=== PATIENT | female | born 1980 | race African-American/Black ===

== ENCOUNTER 2018-10-19 13:15 | Outpatient (CLI) | payer MEDICARE, OTHER, MEDICAID ==
[2018-10-19 14:27] LABS: ADD UMIC NO; UR ASCORBIC ACID 40 mg/dL (NEGATIVE); UR BACTERIA FEW /HPF (NONE SEEN); UR BILIRUBIN (Dip) NEGATIVE (NEGATIVE); UR BLOOD (Dip) NEGATIVE (NEGATIVE); UR CLARITY SLIGHTLY CLOUDY (CLEAR); UR COLOR YELLOW (YELLOW); UR GLUCOSE (Dip) NEGATIVE (NEGATIVE); UR KETONES (Dip) TRACE mg/dL (NEGATIVE); UR LEUKOCYTE ESTERASE (Dip) NEGATIVE Leu/ul (NEGATIVE); UR MUCUS FEW /HPF (NONE SEEN); UR NITRITE (Dip) NEGATIVE (NEGATIVE); UR RBC 2 /HPF (0-5); UR SPECIFIC GRAVITY (Dip) 1.026 (1.003-1.030); UR SQUAMOUS EPITHELIAL CELL FEW /HPF (FEW); UR TOTAL PROTEIN (Dip) NEGATIVE (NEGATIVE); UR UROBILINOGEN (Dip) 2+ mg/dL (NEGATIVE); UR WBC 1 /HPF (0-5)
[2018-10-19] MEDS ORDERED: MEPERIDINE 50 MG INJ IM (15:00)
[2018-10-19] MEDS: HYDROCODONE/APAP (5/325) TAB PO (16:13)
== END 2018-10-19 18:20 | disposition home or self-care (01) ==
LOC: OBT 13:15 → L-D 13:15 → OBT 18:20
DX: O62.9 Abnormality of forces of labor, unspecified (principal); O26.893 Other specified pregnancy related conditions, third trimester; M19.90 Unspecified osteoarthritis, unspecified site; O09.523 Supervision of elderly multigravida, third trimester
CPT/HCPCS: 76817; 76818; 81001; 81003; 93970

== ENCOUNTER 2018-10-19 18:17 | Emergency (ER) | payer MEDICARE, OTHER | END 2018-10-19 19:00 | disposition home or self-care (01) | LOC: E/R 18:17 | DX: O26.893 Other specified pregnancy related conditions, third trimester (principal); R10.2 Pelvic and perineal pain; O99.89 Other specified diseases and conditions complicating pregnancy, childbirth and the puerperium; M79.605 Pain in left leg; Z3A.32 32 weeks gestation of pregnancy | CPT/HCPCS: 99282 ==

== ENCOUNTER 2018-11-16 18:38 | Outpatient (CLI) | payer MEDICARE, OTHER ==
[2018-11-16 20:26] LABS: ADD UMIC NO; UR ASCORBIC ACID NEGATIVE (NEGATIVE); UR BILIRUBIN (Dip) NEGATIVE (NEGATIVE); UR BLOOD (Dip) NEGATIVE (NEGATIVE); UR CLARITY CLEAR (CLEAR); UR COLOR YELLOW (YELLOW); UR GLUCOSE (Dip) NEGATIVE (NEGATIVE); UR KETONES (Dip) NEGATIVE (NEGATIVE); UR LEUKOCYTE ESTERASE (Dip) NEGATIVE Leu/ul (NEGATIVE); UR NITRITE (Dip) NEGATIVE (NEGATIVE); UR SPECIFIC GRAVITY (Dip) 1.018 (1.003-1.030); UR TOTAL PROTEIN (Dip) NEGATIVE (NEGATIVE); UR UROBILINOGEN (Dip) NEGATIVE (NEGATIVE)
[2018-11-16] MEDS: ACETAMINOPHEN 500 MG TAB PO (20:35)
== END 2018-11-16 21:35 | disposition home or self-care (01) ==
LOC: OBT 18:38 → L-D 18:40 → OBT 21:35
DX: O26.893 Other specified pregnancy related conditions, third trimester (principal); M25.562 Pain in left knee; O41.03X0 Oligohydramnios, third trimester, not applicable or unspecified; O34.219 Maternal care for unspecified type scar from previous cesarean delivery; O09.523 Supervision of elderly multigravida, third trimester; Z3A.36 36 weeks gestation of pregnancy
CPT/HCPCS: 76818; 81003; 87086

== ENCOUNTER 2018-11-20 20:36 | Inpatient (IN) | payer MEDICARE, OTHER ==
[2018-11-20 23:20] LABS: ADD MAN DIFF? NO
[2018-11-20 23:26] LABS: BASOPHILS % 0.2 % (0.0-2.0); EOSINOPHILS # 0.1 10^3/ul (0.0-0.5); EOSINOPHILS % 0.6 % (0.0-7.0); HEMATOCRIT 36.1 % (37.0-47.0); HEMOGLOBIN 11.5 g/dl (12.0-16.0); LYMPHOCYTES # 1.6 10^3/ul (0.8-2.9); LYMPHOCYTES % 16.5 % (15.0-51.0); MEAN CORPUSCULAR HEMOGLOBIN 29.6 pg (29.0-33.0); MEAN CORPUSCULAR HGB CONC 31.9 g/dl (32.0-37.0); MEAN CORPUSCULAR VOLUME 92.8 fl (82.0-101.0); MEAN PLATELET VOLUME 11.5 fl (7.4-10.4); MONOCYTE # 0.6 10^3/ul (0.3-0.9); MONOCYTES % 6.7 % (0.0-11.0); NEUTROPHIL # 7.1 10^3/ul (1.6-7.5); NEUTROPHILS % 75.5 % (39.0-77.0); PLATELET COUNT 209 10^3/UL (140-415); RED BLOOD COUNT 3.89 10^6/ul (4.20-5.40)
[2018-11-20 23:26] LABS: WHITE BLOOD COUNT 9.4 10^3/ul (4.8-10.8)
[2018-11-20 23:38] LABS: ALANINE AMINOTRANSFERASE 10 IU/L (13-69); ALBUMIN 3.3 g/dl (3.3-4.9); ALBUMIN/GLOBULIN RATIO 0.94; ALKALINE PHOSPHATASE 131 IU/L (42-121); ANION GAP 6 (5-13); ASPARTATE AMINO TRANSFERASE 18 IU/L (15-46); BILIRUBIN,INDIRECT 0.3 mg/dl (0-1.1); BILIRUBIN,TOTAL 0.3 mg/dl (0.2-1.3); BLOOD UREA NITROGEN 7 mg/dl (7-20); CALCIUM 9.4 mg/dl (8.4-10.2); CARBON DIOXIDE 27 mmol/L (21-31); CHLORIDE 103 mmol/L (97-110); Estimated GFR > 60 mL/min (>60); GLUCOSE 134 mg/dl (70-220); POTASSIUM 3.7 mmol/L (3.5-5.1); SODIUM 136 mmol/L (135-144); TOTAL PROTEIN 6.8 g/dl (6.1-8.1); URIC ACID 5.6 mg/dl (3.1-7.9)
[2018-11-20 23:46] LABS: INR 0.91; PROTIME 12.4 Sec (11.9-14.9)
[2018-11-20 23:47] LABS: PARTIAL THROMBOPLASTIN TIME 24.2 Sec (23.0-35.0)
[2018-11-20 23:49] LABS: ADD UMIC NO; UR ASCORBIC ACID 40 mg/dL (NEGATIVE); UR BACTERIA FEW /HPF (NONE SEEN); UR BILIRUBIN (Dip) NEGATIVE (NEGATIVE); UR BLOOD (Dip) NEGATIVE (NEGATIVE); UR CALCIUM OXALATE CRYSTAL MANY /HPF (NONE SEEN); UR CLARITY SLIGHTLY CLOUDY (CLEAR); UR COLOR YELLOW (YELLOW); UR GLUCOSE (Dip) 1+ mg/dL (NEGATIVE); UR KETONES (Dip) TRACE mg/dL (NEGATIVE); UR LEUKOCYTE ESTERASE (Dip) NEGATIVE Leu/ul (NEGATIVE); UR MUCUS FEW /HPF (NONE SEEN); UR NITRITE (Dip) NEGATIVE (NEGATIVE); UR RBC 3 /HPF (0-5); UR SPECIFIC GRAVITY (Dip) 1.026 (1.003-1.030); UR SQUAMOUS EPITHELIAL CELL FEW /HPF (FEW); UR TOTAL PROTEIN (Dip) NEGATIVE (NEGATIVE); UR UROBILINOGEN (Dip) 1+ mg/dL (NEGATIVE); UR WBC 1 /HPF (0-5)
[2018-11-21] MEDS: HYDROCODONE/APAP (10/325) TAB PO ×2 (01:41→06:16)
[2018-11-21] MEDS: LACTATED RINGER'S 1,000 ML IV (02:55)
[2018-11-21] MEDS ORDERED: HYDROCODONE/APAP (10/325) TAB PO (03:00)
[2018-11-21] MEDS ORDERED: PRENATAL VITAMIN PO (09:00)
== END 2018-11-21 10:17 | disposition left against medical advice (07) | DRG 833 ==
LOC: OBT 20:36 → L-D 20:38
DX: O13.3 Gestational [pregnancy-induced] hypertension without significant proteinuria, third trimester (principal); Z3A.37 37 weeks gestation of pregnancy; Z60.8 Other problems related to social environment
CPT/HCPCS: 76818; 80053; 81001; 81003; 84560; 85025; 85384; 85610; 85730

== ENCOUNTER 2018-11-21 14:22 | Inpatient (IN) | payer MEDICARE, OTHER ==
[2018-11-21] MEDS: LACTATED RINGER'S 1,000 ML IV (19:00)
[2018-11-22] MEDS: LACTATED RINGER'S 1,000 ML IV ×3 (00:54→15:46)
[2018-11-22] MEDS ORDERED: METHYLERGONOVINE 0.2 MG INJ IM (05:00)
[2018-11-22] MEDS ORDERED: MISOPROSTOL 200 MCG TAB PR ×2 (05:00→08:00)
[2018-11-22] MEDS ORDERED: CARBOPROST 250 MCG INJ IM (05:00)
[2018-11-22] MEDS ORDERED: OXYTOCIN 30 UNITS/LR 500 ML IV (05:00)
[2018-11-22] MEDS: CEFAZOLIN 3 GM in DEXTROSE 5% 100 ML IV (05:00)
[2018-11-22] MEDS ORDERED: CEFAZOLIN 2 GM/50 ML (PMX) 50 ML IVPB (05:30)
[2018-11-22] MEDS ORDERED: KETOROLAC 30 MG INJ (07:19)
[2018-11-22] MEDS ORDERED: METOCLOPRAMIDE 10 MG INJ (07:19)
[2018-11-22] MEDS ORDERED: morphine SULFATE/PF (10 MG/10 ML) INJ (07:19)
[2018-11-22] MEDS ORDERED: ONDANSETRON 4 MG INJ (07:19)
[2018-11-22] MEDS: CITRIC ACID/NA CITRATE 30 ML CUP PO (07:45)
[2018-11-22] MEDS ORDERED: DIPHENHYDRAMINE 50 MG INJ (07:48)
[2018-11-22] MEDS ORDERED: EPHEDrine 25 MG/5 ML SYG (08:11)
[2018-11-22] MEDS ORDERED: DIPHENHYDRAMINE 50 MG INJ IV ×2 (09:00)
[2018-11-22] MEDS ORDERED: ONDANSETRON 4 MG INJ IV (09:00)
[2018-11-22] MEDS ORDERED: FENTAnyl 50 MCG/ML VIAL IV ×3 (09:00)
[2018-11-22] MEDS ORDERED: NALOXONE (0.4 MG/ML) INJ IV (09:00)
[2018-11-22] MEDS ORDERED: HYDROmorphONE 1 MG/ML SYG IV (09:00)
[2018-11-22] MEDS ORDERED: HYDROmorphONE 1 MG/5 ML IV SYRINGE IV ×3 (09:00)
[2018-11-22] MEDS ORDERED: KETOROLAC 30 MG INJ IV (09:00)
[2018-11-22] MEDS: OXYTOCIN 30 UNITS/LR 500 ML IV ×2 (09:58→12:24)
[2018-11-22] MEDS: SENNA/DOCUSATE NA (8.6MG/50MG) TAB PO ×2 (12:20→20:30)
[2018-11-22 15:07] LABS: RAPID PLASMA REAGIN NONREACTIVE (NR)
[2018-11-22] MEDS: KETOROLAC 30 MG INJ IV ×2 (15:45→22:42)
[2018-11-22] MEDS: LANOLIN HPA 1 PKT TOP ×2 (15:46→20:31)
[2018-11-22] MEDS: ONDANSETRON 4 MG INJ IV (20:45)
[2018-11-22] MEDS: HYDROmorphONE 0.5 MG/0.5 ML SYG IV (21:00)
[2018-11-23] MEDS: HYDROmorphONE 0.5 MG/0.5 ML SYG IV (04:26)
[2018-11-23] MEDS: ONDANSETRON 4 MG INJ IV (04:26)
[2018-11-23 05:08] LABS: ADD MAN DIFF? NO
[2018-11-23 05:19] LABS: WHITE BLOOD COUNT 12.3 10^3/ul (4.8-10.8)
[2018-11-23 05:19] LABS: BASOPHILS % 0.2 % (0.0-2.0); EOSINOPHILS # 0.1 10^3/ul (0.0-0.5); EOSINOPHILS % 0.6 % (0.0-7.0); HEMOGLOBIN 10.2 g/dl (12.0-16.0); LYMPHOCYTES # 1.2 10^3/ul (0.8-2.9); LYMPHOCYTES % 9.5 % (15.0-51.0); MEAN CORPUSCULAR HEMOGLOBIN 30.4 pg (29.0-33.0); MEAN CORPUSCULAR HGB CONC 32.9 g/dl (32.0-37.0); MEAN CORPUSCULAR VOLUME 92.5 fl (82.0-101.0); MONOCYTE # 0.7 10^3/ul (0.3-0.9); MONOCYTES % 5.8 % (0.0-11.0); NEUTROPHIL # 10.2 10^3/ul (1.6-7.5); NEUTROPHILS % 83.3 % (39.0-77.0); PLATELET COUNT 171 10^3/UL (140-415); RED BLOOD COUNT 3.35 10^6/ul (4.20-5.40); RED CELL DISTRIBUTION WIDTH 12.6 % (11.5-14.5)
[2018-11-23] MEDS: KETOROLAC 30 MG INJ IV (07:07)
[2018-11-23] MEDS: OXYCODONE/ACETAMINOPHEN (5/325) TAB PO ×3 (08:48→20:04)
[2018-11-23] MEDS: SENNA/DOCUSATE NA (8.6MG/50MG) TAB PO ×3 (08:48→21:00)
[2018-11-23] MEDS: IBUPROFEN 600 MG TAB PO ×2 (12:00→18:00)
[2018-11-24] MEDS: OXYCODONE/ACETAMINOPHEN (5/325) TAB PO ×3 (00:27→18:02)
[2018-11-24] MEDS: IBUPROFEN 600 MG TAB PO ×5 (06:03→23:29)
[2018-11-24] MEDS: NA PHOSPHATE/BIPHOS 133 ML ENEMA PR (08:05)
[2018-11-24] MEDS: SENNA/DOCUSATE NA (8.6MG/50MG) TAB PO ×2 (08:38→21:00)
[2018-11-24] MEDS: ENOXAPARIN 40 MG/0.4 ML SYG SC (22:59)
[2018-11-25] MEDS: OXYCODONE/ACETAMINOPHEN (5/325) TAB PO (00:25)
[2018-11-25] MEDS: IBUPROFEN 600 MG TAB PO ×2 (06:06→12:00)
[2018-11-25] MEDS: SENNA/DOCUSATE NA (8.6MG/50MG) TAB PO (09:00)
[2018-11-25] MEDS: MEASLES,MUMPS,RUBELLA VACCINE INJ SC* (09:00)
[2018-11-25] MEDS: DIPHTH/TET/ACEL PERTUSS (ADULT) 0.5 ML VIAL IM* (09:00)
[2018-11-25] MEDS: ENOXAPARIN 40 MG/0.4 ML SYG SC (10:54)
== END 2018-11-25 12:00 | disposition home or self-care (01) | DRG 785 ==
LOC: PP1 14:22 → L-D 11-22 06:35 → PP1 11-24 14:42 → L-D 11-22 08:03 → MS1 11-22 12:55
PROVIDERS: Specialist
PROC: 10D00Z1 Extraction of Products of Conception, Low, Open Approach (ICD-10-PCS; principal; 2018-11-22 07:15)
PROC: 0UB70ZZ Excision of Bilateral Fallopian Tubes, Open Approach (ICD-10-PCS; 2018-11-22 07:15)
DX: O14.94 Unspecified pre-eclampsia, complicating childbirth (principal); O34.211 Maternal care for low transverse scar from previous cesarean delivery; O99.214 Obesity complicating childbirth; Z3A.37 37 weeks gestation of pregnancy; Z37.0 Single live birth; Z30.2 Encounter for sterilization
CPT/HCPCS: 85025; 86592; 86850; 86900; 86901; 88302; 99464